=== PATIENT | female | born 1995 | race Two or more races ===

== ENCOUNTER 2017-03-28 14:36 | Observation (INO) | payer OTHER ==
[2017-03-28 14:49] VITALS: BP 109/67; TEMP 98; O2SAT 99
[2017-03-28 15:01] VITALS: PULSE 72; RESP 16
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
[2017-03-28 15:47] LABS: BASO # 0.1 K/uL (0.0-0.2); BASO % 0.8 % (0.0-2.0); EOS # 0.5 K/uL (0.0-0.7); EOS % 5.1 % (0.0-4.0); HEMATOCRIT 29.9 % (34.0-47.0); LYMPH # 1.9 K/uL (1.0-4.3); LYMPH % 17.9 % (20.0-40.0); MEAN CELL VOLUME 89.7 fl (81.0-99.0); MEAN CORPUSCULAR HEMOGLOBIN 31.3 pg (27.0-31.0); MEAN CORPUSCULAR HGB CONC 34.9 g/dL (33.0-37.0); MEAN PLATELET VOLUME 9.5 fl (7.2-11.7); MONO # 0.6 K/uL (0.0-0.8); MONO % 5.7 % (0.0-10.0); NEUT # 7.5 K/uL (1.8-7.0); NEUT % 70.5 % (50.0-75.0); RED CELL DISTRIBUTION WIDTH 13.8 % (11.5-14.5); WHITE BLOOD COUNT 10.7 K/uL (4.8-10.8)
[2017-03-28 15:55] LABS: BLOOD UREA NITROGEN 10 mg/dl (7-17); CARBON DIOXIDE 22 mmol/L (22-30); CHLORIDE 105 mmol/L (98-107); GFR AFRICAN-AMERICAN > 60; GLUCOSE,RANDOM 85 mg/dL (65-105); POTASSIUM 4.2 MMOL/L (3.6-5.0); SODIUM 134 mmol/l (132-148)
--- NOTE | 2017-03-28 18:11 | US ---
PROCEDURE: OB Pelvic Ultrasound HISTORY: pain of 18wks COMPARISON: None available. FINDINGS: UTERUS: Gestational sac: Single intrauterine gestation. Heart rate: 151 bpm. age (Ultrasound estimated): 18 weeks 0 day +/- 1 week 2 days Lucila-gestational hemorrhage: None. Date of delivery (Ultrasound estimated) : 08/29 Placenta is seen at the anterior wall. The uterine cervix is closed measures 5.4 centimeter. The amount of amniotic fluid is adequate. The femoral length is 2.8 centimeter corresponding to gestational age of 18 weeks 4 days. CERVIX: Long and closed. No cervical abnormality seen. RIGHT OVARY: Was not seen. LEFT OVARY: Was not seen. FREE FLUID: None. OTHER FINDINGS: None. IMPRESSION: Single intrauterine live with ultrasound estimated gestational age of 18 weeks 0 day +/- 1 week 2 days. Estimated date of delivery by ultrasound is 08/29/2017.
== END 2017-03-28 17:40 | disposition home or self-care (01) ==
LOC: H.ER 14:36 → H.EROBSV 15:13
PROVIDERS: ADMIT Emergency Medicine; ATTEND Emergency Medicine
DX: O20.0 Threatened abortion (principal); J45.909 Unspecified asthma, uncomplicated; Z3A.18 18 weeks gestation of pregnancy; V49.9XXA Car occupant (driver) (passenger) injured in unspecified traffic accident, initial encounter; Y92.410 Unspecified street and highway as the place of occurrence of the external cause
CPT/HCPCS: 76815; 80048; 84702; 85025; 86850; 86900; 99282; G0378